=== PATIENT | female | born 1975 | race Caucasian/White ===

== ENCOUNTER → 2021-08-20 11:02 | Outpatient (BNVA) | payer MEDICAID, SELFPAY | PROVIDERS: Visit Provider Physician Assistant Surgical ==

== ENCOUNTER → 2021-09-03 08:06 | Outpatient (BNVA) | payer MEDICAID, SELFPAY | PROVIDERS: Visit Provider Surgery ==

== ENCOUNTER → 2021-09-29 08:25 | Outpatient (BNVA) | payer MEDICAID, SELFPAY | PROVIDERS: Visit Provider Surgery ==

== ENCOUNTER → 2021-10-06 08:14 | Outpatient (BNVA) | payer MEDICAID, SELFPAY | PROVIDERS: Visit Provider Dietitian, Registered ==

== ENCOUNTER 2022-08-19 | Outpatient (REF) | payer MEDICAID, SELFPAY ==
[2022-08-21 11:58] LABS: H Pylori Breath Test Negative (Negative)
== END 2022-08-19 00:01 | disposition home or self-care (01) ==
LOC: HO.LNP
PROVIDERS: Visit Provider Physician Assistant Surgical
DX: E66.01 Morbid (severe) obesity due to excess calories (principal); Z11.0 Encounter for screening for intestinal infectious diseases
CPT/HCPCS: 83013

== ENCOUNTER → 2022-08-19 13:16 | Outpatient (BNVA) | payer MEDICAID, SELFPAY | PROVIDERS: PCP Family Medicine; Visit Provider Physician Assistant Surgical | DX: E66.01 Morbid (severe) obesity due to excess calories (principal); Z68.41 Body mass index [BMI] 40.0-44.9, adult; Z71.3 Dietary counseling and surveillance | CPT/HCPCS: 83013; 99211; 99212 ==

== ENCOUNTER → 2022-08-24 10:12 | Outpatient (REF) | payer MEDICAID, SELFPAY ==
--- NOTE | ~2022-08-24 | XR_ITS ---
EXAMINATION: XR CHEST CLINICAL INFORMATION: Obesity COMPARISON: None TECHNIQUE: 2 views of the chest were obtained. FINDINGS: No significant abnormality is noted involving the heart, lungs, mediastinum, bony thorax or soft tissues. XR/XR chest 2V IMPRESSION: Unremarkable examination.
--- NOTE | 2022-08-24 10:36 | ECG_ITS ---
Test Reason : e66.01 Blood Pressure : / mmHG Vent. Rate : 069 BPM Atrial Rate : 069 BPM P-R Int : 150 ms QRS Dur : 086 ms QT Int : 404 ms P-R-T Axes : 035 058 021 degrees QTc Int : 432 ms Normal sinus rhythm Minimal voltage criteria for LVH, may be normal variant ( Sokolow-Bruner ) Borderline ECG No previous ECGs available Referred By: Mihir Gibbs Electronically Signed By:MARIE LEACH MD
[2022-08-24 10:39] LABS: MANUAL DIFF FLAG NO
[2022-08-24 11:42] LABS: Basophils Percent Auto 0.5 % (0-2); Eosinophils Absolute Auto 0.3 X10*3/uL (0.0-0.4); Eosinophils Percent Auto 4.1 % (0-4); Hematocrit 42.3 % (37.0-47.0); Hemoglobin 14.1 g/dl (12.0-16.0); Imm Gran Abs Auto 0.02 X10*3/uL (0.00-0.03); Imm Gran Pct Auto 0.2 % (0.0-0.4); Lymphocytes Absolute Auto 2.8 X10*3/uL (1.2-4.9); Lymphocytes Percent Auto 34.1 % (20-40); Mean Corpuscular HGB Conc 33.3 g/dl (31.0-35.0); Mean Corpuscular Hemoglobin 28.5 pg (27.0-33.0); Mean Corpuscular Volume 85.5 fL (80.0-98.0); Mean Platelet Volume 9.6 fL (9.4-12.3); Monocytes Absolute Auto 0.5 X10*3/uL (0.1-1.2); Monocytes Percent Auto 6.4 % (2-11); Neutrophils Absolute Auto 4.6 x10*3/uL (2.0-8.3); Neutrophils Percent Auto 54.7 % (45-73); Platelet Count 244 X10*3/uL (160-400); Red Blood Count 4.95 X10*6/uL (4.20-5.50); Red Cell Distribution Width 12.5 % (11.0-16.0); White Blood Count 8.3 X10*3/uL (4.8-10.8)
[2022-08-24 12:03] LABS: Estimated Average Glucose 105 mg/dL; Hemoglobin A1c % 5.3 %
[2022-08-24 12:05] LABS: Alanine Aminotransferase 26 U/L (0-31); Albumin Level 4.5 g/dL (3.5-5.0); Alkaline Phosphatase 77 U/L (39-117); Anion Gap 16 (12-20); Aspartate Amino Transferase 21 U/L (5-31); Bilirubin Total 0.8 mg/dL (0.0-1.0); Blood Urea Nitrogen 8 mg/dL (9-16); C Reactive Protein 0.76 mg/dL (< or = 0.50); Calcium 9.7 mg/dL (8.4-10.2); Carbon Dioxide 26 mmol/L (22-29); Chloride 103 mmol/L (96-108); Cholesterol 215 mg/dL; Estimated Glomerular Filt Rate > 60; Glucose Random 103 mg/dL (60-115); HDL Cholesterol 64 mg/dL; Iron 134 mcg/dL (30-160); LDL Cholesterol Calculated 98 mg/dl; Percent Iron Saturation 37 % (15-50); Potassium 4.2 mmol/L (3.3-5.1); Sodium 141 mmol/L (135-145); Total Iron Binding Capacity 364 mcg/dL (228-428); Total Protein 7.2 g/dL (6.5-8.0); Triglycerides 265 mg/dL; Unsaturated Iron Binding 230 ug/dL
[2022-08-24 12:30] LABS: Folate 11.4 ng/mL (> or = 4.0); Vitamin B12 215 pg/mL (200-900)
[2022-08-24 12:32] LABS: Ferritin 16 ng/mL (10-250); Insulin 9 uU/mL (2-29); Vitamin D 25-OH Total 20.3 ng/mL (>30)
[2022-08-26 13:51] LABS: Calcium (PTHI) 9.6 mg/dL (8.6-10.2); PTHI 54 pg/mL (16-77)
[2022-08-28 14:21] LABS: Vitamin A 57 mcg/dL (38-98)
[2022-08-29 00:06] LABS: Zinc 89 mcg/dL (60-130)
[2022-09-02 11:54] LABS: Vitamin B1 8 nmol/L (8-30)
== END ==
LOC: HO.CARD 10:12
PROVIDERS: PCP Physician Assistant Medical; Visit Provider Physician Assistant Surgical
DX: E66.01 Morbid (severe) obesity due to excess calories (principal)
CPT/HCPCS: 36415; 71046; 80053; 80061; 82306; 82607; 82728; 82746; 83036; 83525; 83540; 83970; 84425; 84443; 84590; 84630; 85025; 86140; 93005

== ENCOUNTER → 2022-09-09 13:00 | Outpatient (BNVA) | payer MEDICAID, SELFPAY | PROVIDERS: PCP Physician Assistant Medical; Visit Provider Physician Assistant Surgical | DX: E66.01 Morbid (severe) obesity due to excess calories (principal); Z68.41 Body mass index [BMI] 40.0-44.9, adult | CPT/HCPCS: 99212 ==

== ENCOUNTER → 2022-09-14 13:00 | Outpatient (BNVA) | payer OTHER, MEDICAID, SELFPAY | PROVIDERS: PCP Physician Assistant Medical; Visit Provider Counselor Mental Health | DX: F43.20 Adjustment disorder, unspecified (principal); E66.9 Obesity, unspecified | CPT/HCPCS: 90791 ==

== ENCOUNTER → 2022-09-15 14:15 | Outpatient (BNVA) | payer MEDICAID, SELFPAY | PROVIDERS: PCP Physician Assistant Medical; Visit Provider Dietitian, Registered | DX: E66.9 Obesity, unspecified (principal) | CPT/HCPCS: 97802 ==

== ENCOUNTER 2022-10-22 08:59 | Outpatient (REF) | payer MEDICAID, SELFPAY ==
--- NOTE | ~2022-10-22 | FL_ITS ---
EXAMINATION: XR FLUOROSCOPY UPPER GI WITH AIR CLINICAL INFORMATION: Morbid obesity. COMPARISON: None. TECHNIQUE: Air-contrast upper GI examination. FINDINGS: There is normal apposition of vocal cords while saying he. There is normal elevation of the soft palate while saying candy . Patient swallowed thin and thick barium and half-inch diameter barium tablet without difficulty. No nasopharyngeal reflux or tracheal aspiration identified. There is normal esophageal motility without evidence of persistent stricture or ulcerations/erosions. Small hiatal hernia was identified. There is noted to be gastroesophageal reflux to the thoracic inlet of the esophagus which cleared rapidly. The stomach demonstrated normal distensibility without evidence of abnormal mass or ulceration. There was no delay in gastric emptying. The duodenal bulb and sweep appeared unremarkable. FLUOROSCOPY TIME: 1.6 minutes. DOSE AREA PRODUCT: 15.78 white centimeter squared. IMAGES: 17 images. FL/FL upper GI w air IMPRESSION: Small hiatal hernia with mild gastroesophageal reflux which clears rapidly.
--- NOTE | ~2022-10-22 | US_ITS ---
EXAMINATION: US COMPLETE ABDOMEN WITH LIVER ELASTOGRAPHY CLINICAL INFORMATION: Morbid/severe obesity due to excess calories. COMPARISON: None TECHNIQUE: Real-time imaging of the abdominal viscera. Noninvasive ultrasound liver fibrosis assessment is performed using Ailyn ElastPQ point quantification shear wave elastography (2D-SWE) with a C5-2 MHz transducer. Multiple elastography samples are obtained. FINDINGS: PANCREAS: Normal. The visualized pancreatic head and body are normal in appearance. The remainder of the pancreas is obscured from visualization by the overlying bowel gas. ABDOMINAL AORTA: The proximal, middle, and distal aortic segments are normal in caliber. INFERIOR VENA CAVA: Visualized portions are normal. LIVER: The liver demonstrates normal size, contour and echogenicity. No focal lesion or intrahepatic biliary duct dilatation. The right lobe measures 15.5 cm in length. The left lobe measures 9.7 cm in length. Portal flow is hepatopetal. Shear wave liver elastography median stiffness is 1.49 m/s (reference: Normal median stiffness is 1.3 m/s or less). IQR/median stiffness to assess sampling precision is 0.25 (reference: Good quality data set is IQR/median stiffness of 0.15 or less). GALLBLADDER: The gallbladder is physiologically distended without evidence of stones, sludge, polyps, wall thickening or pericholecystic fluid. There are small hyperechoic nonmobile polyps measuring 0.3 x 0.3 x 0.3 cm. COMMON BILE DUCT: Normal in caliber measuring 0.4 cm in diameter. RIGHT KIDNEY: There is mild pelvic fullness or an extrarenal kidney pelvis. No renal calculi or focal parenchymal lesions. The kidney measures 10.9 cm in maximum dimension. LEFT KIDNEY: Normal. No hydronephrosis. No renal calculi or focal parenchymal lesions. The kidney measures 11.0 cm in maximum dimension. SPLEEN: Normal. The spleen measures 9.2 cm in maximum dimension. FREE FLUID: None. US/US abdomen comp w elastography IMPRESSION: Gallbladder polyp without wall thickening or echogenic stones. Hepatic steatosis without focal lesion. Mild right renal pelvic fullness versus extrarenal pelvis. Liver Elastography: Median liver Elastography measures 1.49 corresponding to cACLD (ruled out) REFERENCE: Society of Radiologists in Ultrasound Liver Stiffness Thresholds (2019): LIVER STIFFNESS THRESHOLDS: *Liver Stiffness equal or less than 1.3 m/s: High probability of being normal. *Liver Stiffness less than 1.7 m/s: In the absence of other known clinical signs, rules out compensated advanced chronic liver disease. *Liver Stiffness 1.7-2.1 m/s: Suggestive of compensated advanced chronic liver disease but need further test for confirmation. *Liver Stiffness over 2.1 m/s: Rules in compensated advanced chronic liver disease. *Liver Stiffness over 2.4 m/s: Suggestive of clinically significant portal hypertension. QUALITY OF DATA SET: *IQR/Median value equal or less than 0.15 implies a quality data set. *IQR/Median value over 0.15 implies a poor quality data set. SIGNIFICANT CHANGE FROM PRIOR EXAM: Significant change if liver stiffness measurement is 10% or greater from prior exam. OTHER CONSIDERATIONS: The stage of liver fibrosis may be overestimated in the setting of acute hepatitis, liver inflammation, elevated liver function tests, hepatic vascular congestion, obstructive cholestasis, non-fasting state, and infiltrative diseases such as amyloidosis and lymphoma. In some patients with NAFLD, the liver stiffness thresholds for compensated advanced chronic liver disease may be lower. In causes other than viral hepatitis and NAFLD, liver stiffness thresholds are not well established.
== END 2022-10-22 09:00 | disposition home or self-care (01) ==
LOC: HO.US 08:59
PROVIDERS: Visit Provider Physician Assistant Surgical
DX: Z01.818 Encounter for other preprocedural examination (principal); E66.01 Morbid (severe) obesity due to excess calories
CPT/HCPCS: 74246; 76705; 76981

== ENCOUNTER → 2022-10-30 08:11 | Outpatient (BNVA) | payer MEDICAID, SELFPAY | PROVIDERS: PCP Physician Assistant Medical; Visit Provider Surgery | DX: Z13.89 Encounter for screening for other disorder (principal) ==

== ENCOUNTER 2022-11-05 09:20 | Inpatient (IN) | payer MEDICAID, SELFPAY ==
[2022-10-28 15:32] VITALS: BMI 35.3
[2022-10-30 11:11] LABS: MANUAL DIFF FLAG NO
[2022-10-30 11:38] LABS: Basophils Absolute Auto 0.1 X10*3/uL (0.0-0.2); Basophils Percent Auto 0.8 % (0-2); Eosinophils Absolute Auto 0.2 X10*3/uL (0.0-0.4); Eosinophils Percent Auto 3.9 % (0-4); Hematocrit 41.2 % (37.0-47.0); Imm Gran Abs Auto 0.01 X10*3/uL (0.00-0.03); Imm Gran Pct Auto 0.2 % (0.0-0.4); Lymphocytes Absolute Auto 1.8 X10*3/uL (1.2-4.9); Lymphocytes Percent Auto 30.1 % (20-40); Mean Corpuscular Hemoglobin 29.2 pg (27.0-33.0); Mean Corpuscular Volume 85.8 fL (80.0-98.0); Mean Platelet Volume 10.8 fL (9.4-12.3); Monocytes Absolute Auto 0.5 X10*3/uL (0.1-1.2); Monocytes Percent Auto 7.4 % (2-11); Neutrophils Absolute Auto 3.5 x10*3/uL (2.0-8.3); Neutrophils Percent Auto 57.6 % (45-73); Platelet Count 190 X10*3/uL (160-400); Red Cell Distribution Width 12.1 % (11.0-16.0); White Blood Count 6.1 X10*3/uL (4.8-10.8)
[2022-10-30 11:43] LABS: Prothrombin Time 11.2 SEC (10.0-13.1)
[2022-10-30 11:45] LABS: Estimated Average Glucose 100 mg/dL; Hemoglobin A1c % 5.1 %
[2022-10-30 11:46] LABS: Partial Thromboplastin Time 32.5 SEC (26.0-36.4)
[2022-10-30 12:34] LABS: Alanine Aminotransferase 14 U/L (0-31); Albumin Level 4.4 g/dL (3.5-5.0); Alkaline Phosphatase 55 U/L (39-117); Anion Gap 13 (12-20); Aspartate Amino Transferase 16 U/L (5-31); Bilirubin Total 0.6 mg/dL (0.0-1.0); Blood Urea Nitrogen 11 mg/dL (9-16); C Reactive Protein 0.41 mg/dL (< or = 0.50); Calcium 9.4 mg/dL (8.4-10.2); Carbon Dioxide 27 mmol/L (22-29); Chloride 106 mmol/L (96-108); Cholesterol 166 mg/dL; Creatinine Clr Calc Pharmacy 75.5; Estimated Glomerular Filt Rate > 60; Glucose Random 88 mg/dL (60-115); HDL Cholesterol 58 mg/dL; Insulin 5 uU/mL (2-29); LDL Cholesterol Calculated 87 mg/dl; Potassium 4.1 mmol/L (3.3-5.1); Sodium 142 mmol/L (135-145); TSH reflex Free T4 0.38 uIU/mL (0.32-4.0); Total Protein 6.9 g/dL (6.5-8.0); Triglycerides 105 mg/dL
--- NOTE | 2022-10-31 14:53 | MHC.SHP ---
Pre-Procedural Eval Section A Date of Service: 10/31/22 The patient is an INPATIENT: Yes The History & Physical has been completed within 30 days and I have reviewed it.: Yes Section B Chief Complaint: obesity Relevant Family History (Specify if Yes): No Relevant Social History: None Present Medications: None Medical History: No relevant PMH History of Previous Operations: No relevant previous surgery Allergies: Allergies Allergy/AdvReac Type Severity Reaction Status Date / Time Sulfa (Sulfonamide Allergy Severe painful Verified 10/30/22 09:16 Antibiotics) full body [SULFA (SULFONAMIDE rash ANTIBIOTICS)] sulfamethoxazole Allergy Severe painful Verified 10/30/22 09:16 [From BACTRIM] full body rash trimethoprim [From BACTRIM] Allergy Severe painful Verified 10/30/22 09:16 full body rash Review of Systems Sugical H&P ROS: Negative: Constitution, Cardiovascular, Respiratory, Neurological, Psychiatric, Hem-Onc, Allergic/Immunologic, Gastrointestinal, Genitourinary, Musculoskeletal, Integumentary, Endocrine and Eyes/Ears/Nose/Throat Exam Surgical H&P Exam: Normal: HEENT, Normal: Heart, Normal: Lungs, Normal: Extremities, Normal: Abdomen, Normal: Skin and Normal: Neurological Plan Diagnosis/Plan: Unchanged I have reviewed the history and physical and performed a pertinent physical examination on my patient. No changes have occurred unless specified. Time Spent With Patient Time: Total time managing care of this patient today ____ minutes.
[2022-11-04 13:53] LABS: COVID-19 Test Negative (Negative); IDNOW Serial# 9DB6401D
[2022-11-05] VITALS (10 sets, daily range): BP systolic 127–158; BP diastolic 69–78; PULSE 63–75; RESP 11–18; TEMP 36.2–36.7; O2SAT 97–100
[2022-11-05 09:42] LABS: UPreg QC Valid YES; Urine Pregnancy NEGATIVE (NEGATIVE)
[2022-11-05] MEDS: Lactated Ringers 1,000 ML 999 ML IV ×2 (09:56)
--- NOTE | 2022-11-05 09:57 | PC.NURSE ---
patient watching video for md lenz
--- NOTE | 2022-11-05 10:44 | PHA.MEDREC ---
Pharmacy Consult ? Medication Reconciliation Pharmacy has reviewed the medication reconciliation completed by nursing.
--- NOTE | 2022-11-05 11:12 | PM.OP ---
Brief Operative Note Date of Service: 11/05/22 Pre-op diagnosis: Severe obesity with comorbidities (see below) Post-op diagnosis: same Procedure: INITIAL PATIENT BMI ON PRESENTATION AT OUR OFFICE: 41.8 kg/m2 LAST BMI BEFORE SURGERY: 35.3 kg/m2 COMORBIDITIES: hypertension, GERD, diaphragmatic hernia, liver steatosis, gallbladder polyp ?The patient presented to the Weight Management Program with significant obesity that was negatively impacting the patient's comorbidities as listed above.? The program is a phased program with a special focus on preoperative medical weight management to promote substantial weight loss and prepare the patients for the second phase of the program: bariatric surgery. The patient participated in an intensive weekly lifestyle ?intervention and exercise program during which the patient ?has lost between the initial office visit and the last preoperative visit 28.2lbs, or 13.88% of initial actual body weight. It was deemed appropriate for the patient to now have bariatric surgery. In light of the current Covid-19 pandemic and the well documented strong association of obesity and increased risk of worse outcomes if infected with Covid-19 (REFERENCES:https://pubmed.ncbi.nlm.nih.gov/49530008/,?https://pubmed.ncbi.nlm.nih.gov/52013771/), any delay in undergoing bariatric surgery may lead to the patient's worsening health condition and increased?risk of more severe Covid-19 disease if infected. In addition a recent?study from [facility] published in [facility] on 11/03/2021 ([email or web address]) found that, among patients with obesity, substantial weight loss achieved with surgery was associated with improved outcomes of COVID-19 infection. The findings suggest that obesity can be a modifiable risk factor for the severity of COVID-19 infection. In addition, the patient met the BMI-criteria for bariatric surgery based on the BMI on initial presentation. The patient should not be penalized for achieving such weight loss because ?it is not sustainable long-term without surgical intervention and it was achieved in preparation for bariatric surgery ?under my direction and based on my published research ([email or web address]).[email or web address] and?https://www.soard.org/article/[email or web address](76)21236-X/pdf) ?that a 10% preoperative weight loss improves long-term weight loss after surgery and reduces perioperative complications.? Insurance carriers such as [facility] have endorsed my recommendations ?and have included in their policies criteria to include a 10% preoperative weight loss requirement. PROCEDURE: Esophago-gastroscopy, laparoscopic repair of incarcerated diaphragmatic hernia, laparoscopic lysis of adhesions, laparoscopic sleeve gastrectomy and laparoscopic gastropexy INDICATIONS: This is a 47 year-old female who was electively scheduled for laparoscopic, possibly open sleeve gastrectomy. The risks and complications of the procedure were discussed with the patient in advance, particularly the possibility of ; pulmonary embolism; staple line leak; bleeding; GERD; cardiac, pulmonary, or renal complications; as well as long-term problems such as insufficient weight loss, vitamin deficiency, strictures, or ulcers. The patient understood all the risks, and was in agreement to proceed with surgery. DESCRIPTION OF PROCEDURE: After informed consent was obtained from the patient, the patient was given preoperative antibiotics, and was transferred to the operating room. After successful induction of general anesthesia, pneumatic compression devices were placed on both lower extremities. An upper endoscopy was performed next. The oropharynx and esophagus appeared to be within normal limits. There was a diaphragmatic hernia present of moderate size consistent with the findings of the preoperative upper GI. The stomach was entered. Then after all fluid and air were suctioned and the stomach was fully decompressed, the scope was withdrawn and secured in the mid esophagus. The patient was then prepped and draped in the usual sterile manner, and abdominal access was established at the right upper quadrant with the Camilo technique. A 12 mm blunt port was inserted, and the abdomen was insufflated with CO2 to a pressure of 15 mmHg. Under direct visualization, additional ports were placed, specifically two 5 mm Versi-step ports to the left upper quadrant, and a 5 mm Versi-Step port to the right upper quadrant. 1% lidocaine plain was used to infiltrate all port sites as well as all fascia defects. Following that, the patient was placed in a steep reverse Trendelenburg position. An additional 5 mm port was placed to the right flank for the Mediflex retractor that was used to retract the left lobe of the liver. The gastro-esophageal fat pad was opened with the ultrasonic device (Thunderbeat, Olympus) and the anterior esophagus and hiatus were exposed. The angle of His was opened with the ultrasonic device the fundus of the stomach from any diaphragmatic and splenic attachments. I then opened the gastrocolic ligament between the transverse colon and the greater curvature of the stomach with the ultrasonic device to enter the lesser sac and facilitate the ligation of the short gastric vessels. I started at a mid-point along the greater curvature and using the Thunderbeat, all short gastric vessels were divided all the way to the angle of His until the left esperanza was completely dissected at its entirety. I then divided the gastro-colic ligament distally to a distance of about 3-4 cm proximal to the pylorus. There were extensive congenital adhesions between the pancreas and posterior gastric wall. Those were lysed completely with the ultrasonic device. Adhesiolysis took approximately 45 min to complete. There was an obvious significant-sized hiatal hernia. I continued dissecting along the hiatus toward the left esperanza and the angle of His. I fully mobilized the fat pad that was incarcerated in the hernia. I then continued by dissecting even further into the posterior retro-esophageal space all the way to the angle of His. I continued to mobilize the esophagus into the mediastinum circumferentially. Both vagal nerves were seen and preserved. At that point, I was able to have at least 3 to 5 cm of esophagus into the abdomen.? After I completely mobilized the esophagus from both the left and right esperanza and I had a good mobilization of the esophagus circumferentially, I closed the hernia defect with three interrupted #0 Surgidac sutures using the Endo Stitch device, all three of which were placed posterior to the esophagus. ? The stomach was then divided transversely with one Endo OUMAR-45 purple, three OUMAR-45 orange loads and two OUMAR-60 articulating orange loads using the AEON stapler and loads. Every effort was made that the gastric sleeve had a tubular shape and an even caliber throughout. Once the sleeve resection was completed, the staple line of the gastric sleeve was reinforced with Hemoclips. The resected stomach was retrieved without difficulty from the Camilo port. A gastropexy was then performed in order to prevent postoperative GERD and partial gastric volvulus. Several interrupted 2.0 Surgidac sutures were placed between the sleeve's staple line and the previously divided greater omentum and gastro-colic ligament using the Endo-Stitch device. ?An upper endoscopy was performed. There was no narrowing at the GE junction. The scope was easily advanced all the way to the pylorus which was clearly visualized. There was no narrowing anywhere and the sleeve's caliber was even throughout. The sleeve's staple line was inspected and there was no evidence of ischemia, bleeding or dehiscence. At that point the gastroscope was withdrawn from the patient?s mouth while we were decompressing the bowel and the stomach from any remaining air. I looked into the lesser sac to see how the sleeve was situating and it was situating well. There was no bleeding from the staple line, spleen, or short gastric vessels. The Mediflex retractor was removed, and the undersurface of the liver was inspected and there was no bleeding. The patient was placed in supine position. I closed the fascial defect of the 12 mm port site with a figure of eight #1 Polysorb suture. Then 30 cc of Ropivacaine plain with 10 mg of Dexamethasone were used to infiltrate the fascial closure as well as all skin incisions. A total of 6ml of Zynrelef were applied in the Camilo wound. At this point, the abdomen was deflated, all ports were removed under direct vision, and no bleeding was noted from any of the port sites. The skin incisions were irrigated with saline and were closed with 4-0 absorbable monofilament sutures. Steri-Strips and OpSites were used to cover all incisions. The patient was extubated and was transferred in stable condition to the recovery room for further care. I was present and performed all olivas parts of the procedure. Mr. Gibbs was the surgical dental assistant. There were no residents to assist with this case. Heladio Barber MD, PhD, FACS Surgeon: Dakota Barber MD Anesthesia: GETA, local and other (TAP block and 6ml Zynrelef) Was an Gluing Crew Leader used for this Procedure?: No Gluing Crew Leader: Mihir Gibbs Estimated blood loss (mL): 10 IV fluids (mL): 3,000 Urine output (mL): 0 (No rainey to record output) Pathology: other (Stomach) Condition: stable Disposition: PACU
--- NOTE | 2022-11-05 11:15 | PM.PNGS ---
Subjective Subjective Date of Service: 11/06/22 Interval history: Patient has mild incisional pain, but was able to ambulate and use the incentive spirometer. She is tolerating phase 1 bariatric diet Physical Exam Vital Signs: Vital Signs: Last Vital Signs Temp 98.1 F 11/05/22 09:42 Pulse 75 11/05/22 09:42 Resp 16 11/05/22 09:42 BP 148/77 H 11/05/22 09:42 Pulse Ox 97 11/05/22 09:42 O2 Del Method 11/05/22 09:42 BMI result Body Mass Index 35.3 GI: Inspection: Yes normal to inspection, Yes incision (clean, dry and intact) and Yes obesity Palpation (GI): Soft to palpation Extrem: Right lower extremity: normal to inspection (no calf tenderness) Left lower extremity: normal to inspection (no calf tenderness) Objective Data Active Medications Lactated Ringer's (Lr) 1,000 mls @ 999 mls/hr IV .Q1H1M REAL Stop: 11/05/22 11:30 Last Admin: 11/05/22 09:56 Dose: 999 mls/hr Documented By: JOY Labs CBC & Chem 7: 11/06/22 05:08 11/06/22 05:08 Labs: Laboratory Results - last 24 hr 11/04/22 11/05/22 13:05 09:23 Urine Test NEGATIVE COVID-19 (MISHA) Negative COVID-19 Clin Com See Note Procedures Date of Service Date of Service: 11/06/22 Progress Note: A&P Assessment and plan (1) Obesity: Status: Acute Assessment and Plan: s/p laparoscopic sleeve gastrectomy, lysis of adhesions repair of diaphragmatic hernia, and gastropexy Doing well Check am labs. If OK, will discharge home? (2) BMI 35.0-35.9,adult: Status: Acute (3) GERD (gastroesophageal reflux disease): Status: Acute (4) Hypertension: Status: Acute (5) Diaphragmatic hernia: Status: Acute (6) Gallbladder polyp: Status: Acute (7) Status post repair of paraesophageal diaphragmatic hernia: Status: Acute (8) S/P laparoscopic sleeve gastrectomy: Status: Acute Time Spent With Patient Time: Total time managing care of this patient today ____ minutes. Quality Stroke Does the patient have a stroke diagnosis?: No VTE Prior VTE?: No VTE Risk Level:: Surgical - moderate VTE Device Contraindication: N/A - Device Ordered VTE Drug Contraindication: Treatment Not Indicated
--- NOTE | 2022-11-05 13:11 | P.CONAN_ITS ---
HPI - Anesthesia Eval Consult details Narrative: 47 F for gastric sleeve PMFSH Active Problems Active Problems: All Active Problems (Updated 11/05/22 @ 11:17 by Dakota Barber MD) Status post repair of paraesophageal diaphragmatic hernia (Acute) S/P laparoscopic sleeve gastrectomy (Acute) Gallbladder polyp (Acute) Diaphragmatic hernia (Acute) Nausea (Acute) BMI 35.0-35.9,adult (Acute) Obesity (Acute) BMI 37.0-37.9, adult (Acute) Adjustment disorder, unspecified (Acute) GERD (gastroesophageal reflux disease) (Acute) Hypertension (Acute) Morbid obesity (Acute) Past Medical History Medical History (Updated 11/05/22 @ 11:17 by Dakota Barber MD) GERD (gastroesophageal reflux disease) Heart murmur Hypertension Morbid obesity Family History Family History Mother Hypertension Diabetes Father No problems noted. Sister No problems noted. Sister No problems noted. Son No problems noted. Son No problems noted. Son No problems noted. Son No problems noted. Son No problems noted. Son No problems noted. Son No problems noted. Daughter No problems noted. Daughter No problems noted. Daughter No problems noted. Family history of problems with anesthesia: No Surgical History Surgical History (Updated 11/05/22 @ 14:34 by EMILE Burkett) History of dental surgery Hx of section History of Problems with Anesthesia: No Social History Social History Are you a primary wound care technician to a significant other at home: No Do you presently have visiting nurse or other home services: No Alcohol intake: current Alcohol intake frequency: holidays/special occasions only Patient Tobacco Use Status: Never used Tobacco Use of substances other than those prescribed or required for medical reasons: No Currently Displaying Signs/Symptoms of Drug Intoxication Withdrawal: No Have you been hit, kicked, punched, or otherwise hurt by someone within the past year? If so, by whom?: No Are you DNR?: No Advance Directives Information Provided: Yes (brochure mailed) Advance Directives on File: No Recently lost weight without trying: No Eating poorly because of decreased appetite: No Nutrition Risks: No Nutritional Risk Patient : No Poor oral hygiene: No Meds Allergies Allergy/AdvReac Type Severity Reaction Status Date / Time Sulfa (Sulfonamide Allergy Severe painful Verified 10/30/22 09:16 Antibiotics) full body [SULFA (SULFONAMIDE rash ANTIBIOTICS)] sulfamethoxazole Allergy Severe painful Verified 10/30/22 09:16 [From BACTRIM] full body rash trimethoprim [From BACTRIM] Allergy Severe painful Verified 10/30/22 09:16 full body rash Active Medications: Current Medications Famotidine (Famotidine/Pf 20 Mg/2 Ml Vial) 20 mg IVPUSH BID [facility] Last Admin: 11/05/22 14:48 Dose: 20 mg Fentanyl (Fentanyl Citrate/Pf 100 Mcg/2 Ml Vial) 25 mcg IVPUSH Q5M PRN; Protocol PRN Reason: Pain, Moderate (Pain Scale 4-6 Hydromorphone HCl (Hydromorphone Hcl 0.5 Mg/0.5 Ml Syringe) 0.25 mg IVPUSH Q5M PRN; Protocol PRN Reason: Pain, Severe (Pain Scale 7-10) Hydromorphone HCl (Hydromorphone Hcl 0.5 Mg/0.5 Ml Syringe) 0.25 mg IVPUSH Q4H PRN; Protocol PRN Reason: Pain, Moderate (Pain Scale 4-6 Promethazine HCl 0.25 mg/ (Sodium Chloride) 50.01 mls @ 200.04 mls/hr IV ONCE PRN PRN Reason: Nausea and Vomiting Lactated Ringer's (Lr) 1,000 mls @ 125 mls/hr IVCONT .Q8H [facility] Last Admin: 11/05/22 15:01 Dose: 125 mls/hr Acetaminophen (Ofirmev) 1,000 mg in 100 mls @ 16.7 mls/hr IV .Q6H [facility] Last Admin: 11/05/22 15:21 Dose: 16.7 mls/hr Cefazolin Sodium/Dextrose (Ancef) 2 gm in 50 mls @ 100 mls/hr IV POSTOP@1745 [facility] Stop: 11/05/22 18:14 Labetalol HCl (Labetalol Hcl 100 Mg Tablet) 300 mg PO BID [facility]; Protocol Metoclopramide HCl (Metoclopramide Hcl 10 Mg/2 Ml Vial) 10 mg IVPUSH Q6H PRN PRN Reason: Nausea Ondansetron HCl (Ondansetron Hcl 4 Mg/2 Ml Vial) 4 mg IVPUSH Q8H [facility] Sodium Chloride (0.9 % Sodium Chloride Flush 3 Ml Syringe) 3 ml IVFLUSH QSHIFT [facility] Home Medications Medication Instructions Recorded Confirmed Last Taken Type labetalol 100 mg tablet 300 mg PO BID 08/20/21 11/05/22 11/05/22 History magnesium 200 mg tablet 200 mg PO DAILY 08/20/21 10/30/22 Unknown History cholecalciferol (vit D3) 1,000 1 tab PO DAILY 10/28/22 10/30/22 Unknown History unit-vitamin K2 (MK4) 100 mcg tablet Exam Exam Date and Time: November 05, 2022 1611 Height,Weight and Vital Signs: Height 4 ft 11 in Weight 79.379 kg Last Vital Signs Temp 97.6 F 11/05/22 15:53 Pulse 64 11/05/22 15:53 Resp 18 11/05/22 15:53 BP 156/73 H 11/05/22 15:53 Pulse Ox 100 11/05/22 15:53 O2 Del Method 11/05/22 15:53 O2 Flow Rate 2.0 11/05/22 15:53 Pertinent Lab Results Pertinent Lab Results: Laboratory Tests 10/30/22 10/30/22 10/30/22 11:00 11:09 11:09 WBC 6.1 RBC 4.80 Hgb 14.0 Hct 41.2 MCV 85.8 MCH 29.2 MCHC 34.0 RDW 12.1 Plt Count 190 MPV 10.8 Immature Gran % (Auto) 0.2 Neut % (Auto) 57.6 Lymph % (Auto) 30.1 [place] % (Auto) 7.4 Eos % (Auto) 3.9 Baso % (Auto) 0.8 Lymph # (Auto) 1.8 [place] # (Auto) 0.5 Eos # (Auto) 0.2 Baso # (Auto) 0.1 Abs Immat Gran (auto) 0.01 Absolute Neuts (auto) 3.5 Absolute Nucleated RBC 0.000 Nucleated RBC % (auto) 0.0 PT 11.2 INR 1.0 APTT 32.5 Sodium Potassium Chloride Carbon Dioxide Anion Gap BUN Creatinine Estim Creat Clear Calc Estimated GFR Random Glucose Estimat Average Glucose Hemoglobin A1c % Insulin Level Calcium Total Bilirubin AST ALT Alkaline Phosphatase C-Reactive Protein Total Protein Albumin Triglycerides Cholesterol LDL Cholesterol, Calc HDL Cholesterol TSH Urine Test COVID-19 (MISHA) COVID-Bevy Com Blood Type A Positive Antibody Screen NEGATIVE 10/30/22 10/30/22 11/04/22 11:09 11:09 13:05 WBC RBC Hgb Hct MCV MCH MCHC RDW Plt Count MPV Immature Gran % (Auto) Neut % (Auto) Lymph % (Auto) [place] % (Auto) Eos % (Auto) Baso % (Auto) Lymph # (Auto) [place] # (Auto) Eos # (Auto) Baso # (Auto) Abs Immat Gran (auto) Absolute Neuts (auto) Absolute Nucleated RBC Nucleated RBC % (auto) PT INR APTT Sodium 142 Potassium 4.1 Chloride 106 Carbon Dioxide 27 Anion Gap 13 BUN 11 Creatinine 0.82 Estim Creat Clear Calc 75.5 Estimated GFR > 60 Random Glucose 88 Estimat Average Glucose 100 Hemoglobin A1c % 5.1 Insulin Level 5 Calcium 9.4 Total Bilirubin 0.6 AST 16 ALT 14 Alkaline Phosphatase 55 C-Reactive Protein 0.41 Total Protein 6.9 Albumin 4.4 Triglycerides 105 Cholesterol 166 LDL Cholesterol, Calc 87 HDL Cholesterol 58 TSH 0.38 Urine Test COVID-19 (MISHA) Negative COVID-CoTweet See Note Blood Type Antibody Screen 11/05/22 11/05/22 11/05/22 09:23 14:47 14:47 WBC RBC Hgb 12.9 Hct 38.0 MCV MCH MCHC RDW Plt Count MPV Immature Gran % (Auto) Neut % (Auto) Lymph % (Auto) [place] % (Auto) Eos % (Auto) Baso % (Auto) Lymph # (Auto) [place] # (Auto) Eos # (Auto) Baso # (Auto) Abs Immat Gran (auto) Absolute Neuts (auto) Absolute Nucleated RBC Nucleated RBC % (auto) PT INR APTT Sodium 141 Potassium 4.5 Chloride 109 H Carbon Dioxide 19 L Anion Gap 18 BUN 7 L Creatinine 0.78 Estim Creat Clear Calc 79.4 Estimated GFR > 60 Random Glucose 91 Estimat Average Glucose Hemoglobin A1c % Insulin Level Calcium 8.6 D Total Bilirubin AST ALT Alkaline Phosphatase C-Reactive Protein Total Protein Albumin Triglycerides Cholesterol LDL Cholesterol, Calc HDL Cholesterol TSH Urine Test NEGATIVE COVID-19 (MISHA) COVID-Bevy Com Blood Type Antibody Screen Airway Mallampati Class: III TM Dist: >3cm Loose/Missing/Broken Teeth: Yes (chipped front upper , fillings ) Heart: S1,S2 Lungs: b/l breath sounds Assessment and Plan Assessment Anesthesia Assessment: Anesthesia Plan Discussed and Chart Reviewed Final Anesthetic Review Family History of Problems with Anesthesia: No History of Problems with Anesthesia: No NPO: Yes ASA Class: III Final Preanesthetic Review: Meds/Allgs Chart Reviewed, Consent Obtained/Reviewed and Anes Risks/Benef Reviewed Patient Risk: Intermediate Procedure Risk: Intermediate Anesthetic Plan Anesthetic Plan: GA
--- NOTE | 2022-11-05 14:32 | P.DS_ITS ---
DS: Providers Provider Date of Service: 11/06/22 Date of admission: 11/05/22 09:20 Primary care physician: Juli Jaime PA-C DS: Diagnosis Discharge Diagnosis (1) Obesity: Status: Acute (2) BMI 35.0-35.9,adult: Status: Acute (3) GERD (gastroesophageal reflux disease): Status: Acute (4) Hypertension: Status: Acute (5) Diaphragmatic hernia: Status: Acute (6) Gallbladder polyp: Status: Acute DS: Summary Hospital Course Hospital Course: ADMITTING DIAGNOSIS: obesity, HTN ? DISCHARGE DIAGNOSIS: same, s/p laparoscopic sleeve gastrectomy and repair diaphragmatic hernia ? PAST SURGICAL HISTORY: cesarian section ? PROCEDURE: upper endoscopy, laparoscopic sleeve gastrectomy and repair of diaphragmatic hernia hernia ? DISCHARGE SUMMARY: ? History of Present Illness: ? The patient is a?47 year-old woman with a BMI of?41.7 kg/m2 and associated co- morbidities as described above. The patient had extensive work-up,lost?28.2 lbs preoperatively and was electively scheduled for laparoscopic, possible open sleeve gastrectomy and gastropexy. Risks and complications of the surgery were discussed with the patient in advance, particularly the possibility of , pulmonary embolism, anastomotic leak, bleeding, bowel injury, GERD, cardiac, re nal or pulmonary complications. The patient understood all the risks and was in agreement with the surgical plan. ? Hospital Course: ? The patient underwent an uneventful laparoscopic sleeve gastrectomy with gastropexy and repair of diaphragmatic hernia on the day of admission. Postoperatively, the patient was transferred to the surgical floor. The patient received IV Acetaminophen and IV dilaudid for pain control. Patient was started on bariatric phase 1 diet POD #0. On postoperative day one, the patient was feeling well without nausea, vomiting, fevers, or tachycardia. The patient had some mild incisional pain and the abdomen was soft. ? On the morning of postoperative day one, the patient was continued on 1 ounce of water or ice every half hour. During the day, the patient did fairly well, having some incisional pain, but able to ambulate adequately and to tolerate liquids well. ? Since the patient is doing well, we decided that the patient was ready to be discharged. The patient was given instructions to follow-up with me next week and to call my office for any fever over 101, persistent abdominal pain, nausea, vomiting, GERD, symptoms of DVT such as calf tenderness, or leg swelling, or pulmonary embolism such as chest pain or shortness of breath. The patient was also instructed to drink 40-60 ounces of liquids per day using the 1-ounce cups. The patient had been given prescriptions for Tylenol for pain, Zofran prn for nausea, and pantoprazole and carafate previously. The patient was encouraged to ambulate and use the incentive spirometer. The patient was allowed to shower, but no baths, and encouraged to stay active at home. All of these instructions were given to the patient personally. All questions were answered and the patient understood all instructions, the instructions were also given to the patient in print. Time Spent with Patient Time attestation: Total time managing care of this patient today ____ minutes. Discharge coordination time: Less than 30 minutes Quality: Safe Use of Opioids Does Pt have an Active Cancer Diagnosis on the Problem List?: No Quality: Stroke Does the patient have a stroke diagnosis?: No Physical Exam Vital Signs: Vital Signs: Last Vital Signs Temp 98.1 F 11/05/22 09:42 Pulse 75 11/05/22 09:42 Resp 16 11/05/22 09:42 BP 148/77 H 11/05/22 09:42 Pulse Ox 97 11/05/22 09:42 O2 Del Method 11/05/22 09:42 BMI result Body Mass Index 35.3 DS: Data Data Completed and Pending Pending studies at discharge: Pending at discharge 11/05/22 13:49 Surgical [PTH] Routine Labs on day of discharge: Laboratory Results - last 24 hr 11/05/22 09:23 Urine Test NEGATIVE Discharge Plan Discharge Anticipated Discharge Date/Time: 11/06/22 10:00 Patient Disposition: Home, Self-Care Discharge Diagnosis: s/p laparoscopic sleeve gastrectomy and repair of diaphragmatic hernia Referrals: Juli Jaime PA-C [Primary Care Provider] - 1 Week Discharge Medications: Continued labetalol 100 mg tablet 300 mg PO BID pantoprazole 40 mg tablet,delayed release (DR/EC) 40 mg PO DAILY Qty: 30 2RF sucralfate 100 mg/mL suspension 10 ml PO BID Qty: 400 2RF ondansetron HCl 4 mg tablet 4 mg PO Q12H Qty: 20 0RF Discontinued mecobalamin (vitamin B12) 1,000 mcg lozenge 1,000 mcg PO DAILY Qty: 60 0RF Rx Instructions: allow to dissolve in mouth OR may chew lightly before swallowing thiamine HCl (vitamin B1) 100 mg tablet 100 mg PO DAILY Qty: 30 1RF vitamin D3-vitamin K2 (MK4) 1,000-100 unit-mcg Tablet 1 tab PO DAILY magnesium 200 mg tablet 200 mg PO DAILY Discharge Orders: Discharge Order (Routine); Ordered 11/06/22 Ordered By: Dakota Barber Activity on Discharge: No heavy lifting Stand Alone Forms: Patient Portal Discharge page Care Plan Goals: weight loss Health Concerns: obesity Plan of Treatment: No tub baths, sex or returning to work until discussed at first post op appointment. No exercise, alcohol, tobacco or illegal drug use. Continue to use incentive spirometer hourly while awake. Walk in home for 5- 10 minutes every 2 hours during the first week. Follow all instructions in the bariatric handbook and call with any questions.Discharge Instructions 1. Please call your doctor or come back to the emergency room should any new symptoms arise. 2. You will receive a courtesy call from [facility] 24-48 hours after discharge. 3. Activity: abstain from alcohol, practice limited stair climbing, no bending, no driving, no exercise, no illicit substances, no lifting, no sex, no tub bath, no work. 4. Diet: continue as discussed with Dr. Barber. 5. Dressing Change/Wound Care: Your incision is covered by clear bandages and guaze underneath. If the area is tender, you may apply an ice pack for short intervals (no more than 20 minutes on, followed by at least 20 minutes off). Do not apply heat. Do not use creams, lotions, or topical antibiotics unless instructed to do so by your surgeon. These can cause infection or allergic reaction. 6. Call your doctor if: - Your temperature exceeds 101.5 F - You experience excessive pain or swelling - You have an unexpected reaction to medication - You have excessive bleeding - You experience continued vomiting/nausea - Your incision begins to separate - Your incision shows signs of infection such as increased redness, swelling, excessive pain, heat, or drainage (light blood or clear fluid is normal) 7. General instructions: No lifting greater than 5 lbs for the next 4 weeks[address] driving within 24 hours of taking narcotic pain medications. If you do not move your bowels in the next 2 days, please take milk of magnesia over the counter. Please follow the post op diet and do not advance your diet until you are seen in the office in about 2 weeks. Please walk around your home every hour or two to prevent blood clots from forming in your legs. You do not need to wake from sleeping to walk. Please sleep in a bed or couch to prevent kinking at the hips and knees. Please take your incentive spirometer (your lung material flow analyst) home with you and use it for the next few days to prevent pneumonias. You may shower, no hot tubs, baths or swimming pools. Please call the office with any questions or concerns such as increasing abdominal pain, fever, chills, shortness of breath, chest pain, leg pain or swelling, or redness or drainage from your incisions. Please stay on stage 3 diet which includes sugar free clear liquids such as ice pops and jello and broth and crystal light. Avoid all carbonation. Please drink 3 protein shakes with at least 25-30 grams of protein daily or 3 of the Celebrate 4:1 shakes which can be purchased in our office. The Celebrate shakes have all of the bariatric vitamins you need if you consume these shakes. If you are drinking other protein shakes, you will need to purchase the Celebrate multivitamins and calcium that we provide in the office (they will provide all the vitamins you need). Please make sure you are consuming at least 40-60 ounces of water in addition to your 3 protein shakes daily. Do not hesitate to contact the office with any questions at . The patient's medical history has been reviewed and they are considered low risk for post op DVT and therefore DVT prophylaxis is not considered necessary. Travel after surgery was reviewed. The patient has not disclosed any travel plans during the first 30 days after surgery and they have been advised that within the first 30 days after surgery any bus, plane, train or car travel over 2 hours in duration is contraindicated due to the possibility of developing blood clots from immobility. Any travel, needs to include periods of ambulation of 10 minutes in duration every 2 hours.? The patient was instructed to discuss any plans for travel during this period with their bariatric surgeon. Assessment: stable s/p laparoscopic sleeve gastrectomy and repair of diaphragmatic hernia
[2022-11-05] MEDS: Famotidine/PF 20 MG/2 ML VIAL IVPUSH ×2 (14:48→19:12)
[2022-11-05 14:53] LABS: Hemoglobin 12.9 g/dl (12.0-16.0)
[2022-11-05] MEDS: Lactated Ringers 1,000 ML 125 ML IVCONT ×2 (15:01→22:37)
[2022-11-05 15:16] LABS: Anion Gap 18 (12-20); Blood Urea Nitrogen 7 mg/dL (9-16); Calcium 8.6 mg/dL (8.4-10.2); Carbon Dioxide 19 mmol/L (22-29); Chloride 109 mmol/L (96-108); Creatinine Clr Calc Pharmacy 79.4; Estimated Glomerular Filt Rate > 60; Glucose Random 91 mg/dL (60-115); Potassium 4.5 mmol/L (3.3-5.1); Sodium 141 mmol/L (135-145)
[2022-11-05] MEDS: Acetaminophen 1,000 MG/100 ML PIGGYBACK 16.7 MG IV ×2 (15:21→19:12)
[2022-11-05] MEDS: ceFAZolin Sodium/Dextrose,Iso 2 GM/50 ML PIGGYBACK IV (17:02)
[2022-11-05] MEDS: 0.9 % Sodium Chloride Flush 3 ML SYRINGE IVFLUSH (19:12)
[2022-11-05] MEDS: Labetalol HCL 100 MG TABLET 300 MG PO (19:12)
[2022-11-05] MEDS: ondansetron HCL 4 MG/2 ML VIAL IVPUSH (23:38)
[2022-11-06] MEDS: Acetaminophen 1,000 MG/100 ML PIGGYBACK 16.7 MG IV ×2 (01:05→06:25)
[2022-11-06 03:34] VITALS: BP 134/67; PULSE 59; RESP 18; TEMP 36.5; O2SAT 97
--- NOTE | 2022-11-06 05:22 | PC.NURSE ---
pt had a good night, minimal pain, no c/o nausea, tolerating phase 1 diet, ambulated in the hallway several times overnight.
[2022-11-06 05:27] LABS: MANUAL DIFF FLAG NO
[2022-11-06 05:33] LABS: Basophils Percent Auto 0.1 % (0-2); Hematocrit 36.8 % (37.0-47.0); Hemoglobin 12.7 g/dl (12.0-16.0); Imm Gran Abs Auto 0.05 X10*3/uL (0.00-0.03); Imm Gran Pct Auto 0.6 % (0.0-0.4); Lymphocytes Absolute Auto 1.1 X10*3/uL (1.2-4.9); Lymphocytes Percent Auto 13.6 % (20-40); Mean Corpuscular HGB Conc 34.5 g/dl (31.0-35.0); Mean Corpuscular Hemoglobin 29.3 pg (27.0-33.0); Mean Platelet Volume 11.1 fL (9.4-12.3); Monocytes Absolute Auto 0.4 X10*3/uL (0.1-1.2); Monocytes Percent Auto 4.9 % (2-11); Neutrophils Absolute Auto 6.7 x10*3/uL (2.0-8.3); Neutrophils Percent Auto 80.8 % (45-73); Platelet Count 191 X10*3/uL (160-400); Red Blood Count 4.33 X10*6/uL (4.20-5.50); Red Cell Distribution Width 12.1 % (11.0-16.0); White Blood Count 8.2 X10*3/uL (4.8-10.8)
[2022-11-06 06:15] LABS: Anion Gap 16 (12-20); Blood Urea Nitrogen 7 mg/dL (9-16); Calcium 8.8 mg/dL (8.4-10.2); Carbon Dioxide 17 mmol/L (22-29); Chloride 109 mmol/L (96-108); Creatinine Clr Calc Pharmacy 75.5; Estimated Glomerular Filt Rate > 60; Glucose Random 105 mg/dL (60-115); Potassium 4.4 mmol/L (3.3-5.1); Sodium 138 mmol/L (135-145)
[2022-11-06] MEDS: Lactated Ringers 1,000 ML 125 ML IVCONT (06:26)
--- NOTE | 2022-11-06 07:52 | HO.POSTANES ---
Post Anesthesia Evaluation Post Anesthesia Evaluation Vital Signs: Vital Signs Temp Pulse Resp BP Pulse Ox O2 Del Method 11/06/22 03:34 97.7 F 59 18 134/67 97 Room Air 11/05/22 23:20 97.5 F 64 18 145/78 H 98 Room Air 11/05/22 20:00 97.4 F 70 18 158/77 H 97 Room Air Anesthesia: General Endotracheal-GETA Mental Status: Awake Pain Control: Satisfactory Nausea/Vomiting: None Hydration: Adequate Anesthesia-Related Issues: No Anes. Related Issues
[2022-11-06 08:00] VITALS: BP 132/66; PULSE 68; RESP 17; TEMP 36.8; O2SAT 98
[2022-11-06] MEDS: ondansetron HCL 4 MG/2 ML VIAL IVPUSH (08:21)
[2022-11-06] MEDS: Famotidine/PF 20 MG/2 ML VIAL IVPUSH (08:21)
[2022-11-06] MEDS: Labetalol HCL 100 MG TABLET 300 MG PO (08:21)
== END 2022-11-06 09:30 | disposition home or self-care (01) | DRG 403 ==
LOC: HO.SSSA 09:29 → HO.S3 14:34
PROVIDERS: Physician Assistant Surgical; Admitting Provider Surgery; PCP Physician Assistant Medical; Visit Provider Surgery
PROC: 0DB64Z3 Excision of Stomach, Percutaneous Endoscopic Approach, Vertical (ICD-10-PCS; CPT 43845; principal; 2022-11-05 11:10)
DX: E66.01 Morbid (severe) obesity due to excess calories (principal); K76.0 Fatty (change of) liver, not elsewhere classified; K44.0 Diaphragmatic hernia with obstruction, without gangrene; K21.9 Gastro-esophageal reflux disease without esophagitis; I10 Essential (primary) hypertension; K82.4 Cholesterolosis of gallbladder; Z68.35 Body mass index [BMI] 35.0-35.9, adult; Q43.3 Congenital malformations of intestinal fixation; Z20.822 Contact with and (suspected) exposure to COVID-19; Z88.2 Allergy status to sulfonamides; Z79.899 Other long term (current) drug therapy
CPT/HCPCS: 36415; 80048; 80053; 80061; 81025; 83036; 83525; 84443; 85014; 85018; 85025; 85610; 85730; 86140; 86850; 86900; 86901; 87635; 88307; 88342; A4649; C9088; J0131; J0690; J1100; J1170; J2250; J2405; J2795; J3010

== ENCOUNTER → 2022-11-10 13:51 | Outpatient (BNVA) | payer MEDICAID, SELFPAY | PROVIDERS: PCP Physician Assistant Medical; Visit Provider Physician Assistant Surgical | DX: Z13.89 Encounter for screening for other disorder (principal) ==

== ENCOUNTER → 2022-11-30 13:59 | Outpatient (BNVA) | payer MEDICAID, SELFPAY | PROVIDERS: PCP Physician Assistant Medical; Visit Provider Physician Assistant | DX: Z98.84 Bariatric surgery status (principal); Z98.890 Other specified postprocedural states; Z87.19 Personal history of other diseases of the digestive system ==

== ENCOUNTER → 2022-12-17 13:00 | Outpatient (BNVA) | payer MEDICAID, SELFPAY | PROVIDERS: PCP Physician Assistant Medical; Visit Provider Physician Assistant | DX: Z13.89 Encounter for screening for other disorder (principal) ==

== ENCOUNTER → 2023-01-14 13:00 | Outpatient (BNVA) | payer MEDICAID, SELFPAY | PROVIDERS: PCP Physician Assistant Medical; Visit Provider Physician Assistant ==

== ENCOUNTER → 2023-03-11 13:30 | Outpatient (BNVA) | payer MEDICAID, SELFPAY | PROVIDERS: PCP Physician Assistant Medical; Visit Provider Physician Assistant | DX: I10 Essential (primary) hypertension (principal); Z98.84 Bariatric surgery status ==

== ENCOUNTER 2023-04-08 12:19 | Outpatient (REF) | payer MEDICAID, SELFPAY ==
[2023-04-08 12:33] LABS: MANUAL DIFF FLAG NO
[2023-04-08 13:34] LABS: Basophils Absolute Auto 0.1 X10*3/uL (0.0-0.2); Basophils Percent Auto 0.7 % (0-2); Eosinophils Absolute Auto 0.2 X10*3/uL (0.0-0.4); Eosinophils Percent Auto 2.9 % (0-4); Hematocrit 40.1 % (37.0-47.0); Hemoglobin 13.4 g/dl (12.0-16.0); Imm Gran Abs Auto 0.01 X10*3/uL (0.00-0.03); Imm Gran Pct Auto 0.1 % (0.0-0.4); Lymphocytes Absolute Auto 2.7 X10*3/uL (1.2-4.9); Lymphocytes Percent Auto 38.9 % (20-40); Mean Corpuscular HGB Conc 33.4 g/dl (31.0-35.0); Mean Corpuscular Hemoglobin 29.4 pg (27.0-33.0); Mean Corpuscular Volume 87.9 fL (80.0-98.0); Mean Platelet Volume 10.2 fL (9.4-12.3); Monocytes Absolute Auto 0.4 X10*3/uL (0.1-1.2); Monocytes Percent Auto 5.5 % (2-11); Neutrophils Absolute Auto 3.6 x10*3/uL (2.0-8.3); Neutrophils Percent Auto 51.9 % (45-73); Platelet Count 219 X10*3/uL (160-400); Red Blood Count 4.56 X10*6/uL (4.20-5.50); Red Cell Distribution Width 12.4 % (11.0-16.0); White Blood Count 6.9 X10*3/uL (4.8-10.8)
[2023-04-08 13:43] LABS: Estimated Average Glucose 94 mg/dL; Hemoglobin A1c % 4.9 %
[2023-04-08 14:08] LABS: Alanine Aminotransferase 11 U/L (0-31); Alkaline Phosphatase 58 U/L (39-117); Anion Gap 13 (12-20); Aspartate Amino Transferase 17 U/L (5-31); Bilirubin Total 0.8 mg/dL (0.0-1.0); Blood Urea Nitrogen 7 mg/dL (9-16); C Reactive Protein < 0.10 mg/dL (< or = 0.50); Calcium 9.6 mg/dL (8.4-10.2); Carbon Dioxide 28 mmol/L (22-29); Chloride 107 mmol/L (96-108); Cholesterol 169 mg/dL; Estimated Glomerular Filt Rate > 60; Glucose Random 86 mg/dL (60-115); HDL Cholesterol 77 mg/dL; Iron 75 mcg/dL (30-160); LDL Cholesterol Calculated 75 mg/dl; Percent Iron Saturation 29 % (15-50); Potassium 4.6 mmol/L (3.3-5.1); Sodium 143 mmol/L (135-145); Total Iron Binding Capacity 261 mcg/dL (228-428); Total Protein 6.3 g/dL (6.5-8.0); Triglycerides 87 mg/dL; Unsaturated Iron Binding 186 ug/dL
[2023-04-08 14:38] LABS: Ferritin 34 ng/mL (10-250); Folate 14.8 ng/mL (> or = 4.0); Insulin 4 uU/mL (2-29); TSH reflex Free T4 0.46 uIU/mL (0.32-4.0); Vitamin B12 298 pg/mL (200-900); Vitamin D 25-OH Total 41.5 ng/mL (>30)
[2023-04-12 14:18] LABS: Calcium (PTHI) 9.5 mg/dL (8.6-10.4); PTHI 63 pg/mL (16-77)
[2023-04-13 15:33] LABS: Zinc 52 mcg/dL (60-130)
[2023-04-14 16:39] LABS: Vitamin A 44 mcg/dL (38-98)
[2023-04-15 12:28] LABS: Vitamin B1 14 nmol/L (8-30)
== END 2023-04-08 12:20 | disposition home or self-care (01) ==
LOC: HO.LAB 12:19
PROVIDERS: PCP Physician Assistant Medical; Visit Provider Physician Assistant
DX: I10 Essential (primary) hypertension (principal); Z98.84 Bariatric surgery status
CPT/HCPCS: 36415; 80053; 80061; 82306; 82607; 82728; 82746; 83036; 83525; 83540; 83970; 84425; 84443; 84590; 84630; 85025; 86140

== ENCOUNTER → 2023-05-21 10:58 | Outpatient (BNVA) | payer MEDICAID, SELFPAY | PROVIDERS: PCP Physician Assistant Medical; Visit Provider Dietitian, Registered | DX: E66.3 Overweight (principal); Z71.3 Dietary counseling and surveillance; Z68.24 Body mass index [BMI] 24.0-24.9, adult | CPT/HCPCS: 97803 ==

== ENCOUNTER 2023-06-28 13:00 | Outpatient (AMB) | payer OTHER, MEDICAID, SELFPAY ==
[2023-06-28 13:04] VITALS: BMI 23.5
--- NOTE | 2023-06-28 13:04 | MHC.OFFVISWM ---
Intake VS Expanded 06/28/23 13:04 Height 4 ft 10.5 in Weight 114 lb 8 oz BMI 23.5 Intake Visit Reasons: VIDEO PO LSG 11/05/22 Allergies Sulfa (Sulfonamide Antibiotics) [SULFA (SULFONAMIDE ANTIBIOTICS)] Allergy (Severe, Verified 11/10/22 14:49) painful full body rash sulfamethoxazole [From BACTRIM] Allergy (Severe, Verified 11/10/22 14:49) painful full body rash trimethoprim [From BACTRIM] Allergy (Severe, Verified 11/10/22 14:49) painful full body rash Medication List - Last Reconciled 06/28/23 by Chelsea Gill PA-C calcium citrate-vitamin D3 315 mg-5 mcg (200 unit) (Calcium Citrate + D) 1 tab PO DAILY labetalol 200 mg PO BID [id number]-vit K 45 mg iron- 800 mcg-120 mcg (Bariatric Multivitamins) caps PO zinc acetate 25 mg PO DAILY HPI HPI Comments History of Present Illness Details Pt is now almost 8 months s/p LSG and has reached a healthy weight. Notices that she belches and has frequent flatulence. BM's normal once per day. Takes bariatric MVI in am with BP meds. Meal plan: 8am - 1 egg fried or poached with 1 oz melon 11 am - Orgain with soymilk 3pm --1-2 oz tofu/tuna, may have some beans OR protein shake 6:30 pm - protein 2 oz and 2oz veg [facility] Medical History (Updated 03/11/23 @ 12:27 by Chelsea Gill PA-C) BMI 37.0-37.9, adult Diaphragmatic hernia GERD (gastroesophageal reflux disease) Heart murmur Hypertension Morbid obesity Nausea Surgical History History of dental surgery Hx of section Family History Mother Hypertension Diabetes Father No problems noted. Sister No problems noted. Sister No problems noted. Son No problems noted. Son No problems noted. Son No problems noted. Son No problems noted. Son No problems noted. Son No problems noted. Son No problems noted. Daughter No problems noted. Daughter No problems noted. Daughter No problems noted. Social History Are you a primary healthcare translator to a significant other at home: No Do you presently have visiting nurse or other home services: No Alcohol intake: current Alcohol intake frequency: holidays/special occasions only Patient Tobacco Use Status: Never used Tobacco Assessment & Plan Assessment & Plan (1) S/P laparoscopic sleeve gastrectomy: Code(s): Z98.84 - Bariatric surgery status Plan: Now 8 months post op with increase in belching and flatulence. Needs 50-55 grams protein per day. Now take MVI with dinner. 8-9 am - soy yogurt 9 grams , 1 TBL of crushed nuts and 1/4 c berries 12 - 1 pm - 2 oz protein , 2 oz veg 3pm - 2 hb eggs 6:30- pm - 2 oz and 2 oz add 1-2 oz of healthy carb. Exercise - has a great routine with bulging muscles!! Next appt with me at 12 months, [place] in 1 month. She willl text me in 2 weeks with weight and to see if these GI symptoms resolve. I spent 23 minutes in total speaking with the patient via video conference counseling , reviewing records and charting in patients chart. . Telehealth Telehealth Location of provider rendering services: practice address Location of patient: address on file Patient Identification confirmed using: Name, : Yes Telehealth method: video Patient verbally consented to treatment: Yes Patient verbally consented to billing insurance company: Yes Patient informed of any privacy concerns related to visit: Yes Coding Level of Care Code Tele Est Pt Level 4 (60159) Diagnoses S/P laparoscopic sleeve gastrectomy Z98.84
== END 2023-06-28 14:14 | disposition home or self-care (01) ==
LOC: HO.HBS 13:31
PROVIDERS: PCP Physician Assistant Medical; Visit Provider Physician Assistant
DX: Z71.3 Dietary counseling and surveillance (principal); Z68.23 Body mass index [BMI] 23.0-23.9, adult; Z90.3 Acquired absence of stomach [part of]; Z98.84 Bariatric surgery status
CPT/HCPCS: 99214

== ENCOUNTER → 2023-06-28 13:00 | Outpatient (BNVA) | payer SELFPAY | PROVIDERS: PCP Physician Assistant Medical; Visit Provider Physician Assistant | DX: I10 Essential (primary) hypertension (principal); Z98.84 Bariatric surgery status ==

== ENCOUNTER 2023-12-09 11:00 | Outpatient (AMB) | payer OTHER, SELFPAY ==
--- NOTE | 2023-12-09 11:06 | MHC.OFFVISWM ---
Intake VS Expanded 12/09/23 11:13 Height 4 ft 10.5 in Weight 105 lb BMI 21.6 Intake Visit Reasons: TV PO LSG 08/30/18 Allergies Sulfa (Sulfonamide Antibiotics) [SULFA (SULFONAMIDE ANTIBIOTICS)] Allergy (Severe, Verified 11/10/22 14:49) painful full body rash sulfamethoxazole [From BACTRIM] Allergy (Severe, Verified 11/10/22 14:49) painful full body rash trimethoprim [From BACTRIM] Allergy (Severe, Verified 11/10/22 14:49) painful full body rash Medication List - Last Reconciled 12/09/23 by Chelsea Gill PAStew calcium citrate-vitamin D3 315 mg-5 mcg (200 unit) (Calcium Citrate + D) 1 tab PO DAILY labetalol 200 mg PO BID wyxzocpghcuu-dmo-mxka-FA-vit K 45 mg iron- 800 mcg-120 mcg (Bariatric Multivitamins) caps PO zinc acetate 25 mg PO DAILY HPI HPI Comments History of Present Illness Details Now 13 months post op (LSG 10/29/22). Belching and flatulence has improved significantly, now takes a probiotic that Floridalma recommended. Opens capsules. Needs 50-55 grams protein per day. Now take MVI with dinner. 8-9 am - soy yogurt 9 grams , 1 TBL of crushed nuts and 1/4 c berries 12 - 1 pm - 2 oz protein , 2 oz veg 3pm - 2 hb eggs 6:30- pm - 2 oz and 2 oz add 1-2 oz of healthy carb. Exercise - treadmill 4-5 d/week and weights 2 d/week. [facility] Medical History (Updated 03/11/23 @ 12:27 by Chelsea Gill PA-C) Diaphragmatic hernia Nausea Heart murmur GERD (gastroesophageal reflux disease) BMI 37.0-37.9, adult Hypertension Morbid obesity Surgical History History of dental surgery Hx of section Family History Mother Hypertension Diabetes Father No problems noted. Sister No problems noted. Sister No problems noted. Son No problems noted. Son No problems noted. Son No problems noted. Son No problems noted. Son No problems noted. Son No problems noted. Son No problems noted. Daughter No problems noted. Daughter No problems noted. Daughter No problems noted. Social History Are you a primary menagerie caretaker to a significant other at home: No Do you presently have visiting nurse or other home services: No Alcohol intake: current Alcohol intake frequency: holidays/special occasions only Patient Tobacco Use Status: Never used Tobacco Assessment & Plan Assessment & Plan (1) S/P laparoscopic sleeve gastrectomy: Code(s): Z98.84 - Bariatric surgery status Plan: Has reached her goal weight with 95 lbs lost. About 50 % TBWL. We didnto make any change sto meal plan - still 50 - 55 grams protein per day - we did discuss high protien plant based foods, seitan, edamamme products. Exercise - will keep up with ST - try Pilates. Will continue cardio but less intense to maintain her healthy weight. Labs are ordered. Next appt with me in 6 months. I spent 28 minutes in total speaking with the patient via video conference counseling , reviewing records and charting in patients chart. . Orders: Orders Insulin Today Z87.19 - Personal history of other diseases of the digestive system, Z98.84 - Bariatric surgery status, Z98.890 - Other specified postprocedural states C Reactive Protein Today Z87.19 - Personal history of other diseases of the digestive system, Z98.84 - Bariatric surgery status, Z98.890 - Other specified postprocedural states Vitamin B1 Today Z87.19 - Personal history of other diseases of the digestive system, Z98.84 - Bariatric surgery status, Z98.890 - Other specified postprocedural states Ferritin Today Z87.19 - Personal history of other diseases of the digestive system, Z98.84 - Bariatric surgery status, Z98.890 - Other specified postprocedural states Hemoglobin A1c Today Z87.19 - Personal history of other diseases of the digestive system, Z98.84 - Bariatric surgery status, Z98.890 - Other specified postprocedural states Complete Blood Count Auto Diff Today Z87.19 - Personal history of other diseases of the digestive system, Z98.84 - Bariatric surgery status, Z98.890 - Other specified postprocedural states Lipid Panel Today Z87.19 - Personal history of other diseases of the digestive system, Z98.84 - Bariatric surgery status, Z98.890 - Other specified postprocedural states IRON PROFILE Today Z87.19 - Personal history of other diseases of the digestive system, Z98.84 - Bariatric surgery status, Z98.890 - Other specified postprocedural states Comprehensive Met. Panel Today Z87.19 - Personal history of other diseases of the digestive system, Z98.84 - Bariatric surgery status, Z98.890 - Other specified postprocedural states Vitamin B12 and Folate Today Z87.19 - Personal history of other diseases of the digestive system, Z98.84 - Bariatric surgery status, Z98.890 - Other specified postprocedural states Zinc Today Z87.19 - Personal history of other diseases of the digestive system, Z98.84 - Bariatric surgery status, Z98.890 - Other specified postprocedural states Vitamin A Today Z87.19 - Personal history of other diseases of the digestive system, Z98.84 - Bariatric surgery status, Z98.890 - Other specified postprocedural states TSH reflex Free T4 Today Z87.19 - Personal history of other diseases of the digestive system, Z98.84 - Bariatric surgery status, Z98.890 - Other specified postprocedural states Vitamin D 25-OH Total Today Z87.19 - Personal history of other diseases of the digestive system, Z98.84 - Bariatric surgery status, Z98.890 - Other specified postprocedural states Referrals Nutrition/Dietitian Referral Z87.19 - Personal history of other diseases of the digestive system, Z98.84 - Bariatric surgery status, Z98.890 - Other specified postprocedural states Behavioral Health Referral Z87.19 - Personal history of other diseases of the digestive system, Z98.84 - Bariatric surgery status, Z98.890 - Other specified postprocedural states Telehealth Telehealth Location of provider rendering services: practice address Location of patient: address on file Patient Identification confirmed using: Name, : Yes Telehealth method: video Patient verbally consented to treatment: Yes Patient verbally consented to billing insurance company: Yes Patient informed of any privacy concerns related to visit: Yes Coding Level of Care Code Tele Est Pt Level 4 (79618) Diagnoses S/P laparoscopic sleeve gastrectomy Z98.84
[2023-12-09 11:13] VITALS: BMI 21.6
== END 2023-12-09 11:33 | disposition home or self-care (01) ==
LOC: HO.HBS 11:32
PROVIDERS: PCP Physician Assistant Medical; Visit Provider Physician Assistant
DX: Z71.3 Dietary counseling and surveillance (principal); Z90.3 Acquired absence of stomach [part of]; Z98.84 Bariatric surgery status
CPT/HCPCS: 99213

== ENCOUNTER → 2023-12-09 11:00 | Outpatient (BNVA) | payer OTHER, SELFPAY | PROVIDERS: PCP Physician Assistant Medical; Visit Provider Physician Assistant | DX: Z98.84 Bariatric surgery status (principal); Z98.890 Other specified postprocedural states; Z87.19 Personal history of other diseases of the digestive system ==